=== PATIENT | male | born 1995 | race American Indian/Alaskan Native ===

== ENCOUNTER 2017-03-26 | Emergency (ER) | END 2017-03-26 08:41 | disposition home or self-care (01) ==

== ENCOUNTER 2017-07-06 20:57 | Emergency (ER) | payer OTHER ==
[~2017-07-06] VITALS: Ht 177.8 cm; Wt 81.7 kg
[~2017-07-06 20:57] MED LIST: DIPH50 PO; MUPI2TO TOP; OTC COLD MEDS; PRED20 PO
== END 2017-07-06 23:23 | disposition home or self-care (01) ==
LOC: ER 20:57
DX: S06.0X0A Concussion without loss of consciousness, initial encounter (principal); S01.312A Laceration without foreign body of left ear, initial encounter; S46.911A Strain of unspecified muscle, fascia and tendon at shoulder and upper arm level, right arm, initial encounter; S43.401A Unspecified sprain of right shoulder joint, initial encounter; M54.6 Pain in thoracic spine; V47.6XXA Car passenger injured in collision with fixed or stationary object in traffic accident, initial encounter; Z88.0 Allergy status to penicillin; Z79.52 Long term (current) use of systemic steroids; F17.210 Nicotine dependence, cigarettes, uncomplicated
CPT/HCPCS: 70450; 73030

== ENCOUNTER 2017-07-21 15:59 | Emergency (ER) | payer SELFPAY ==
[~2017-07-21] VITALS: Ht 177.8 cm; Wt 77.1 kg
[2017-07-21] MEDS ORDERED: IBUP800 PO (16:57)
[2017-07-21] MEDS ORDERED: Cleocin HCl300 MG PO (16:57)
== END 2017-07-21 17:04 | disposition home or self-care (01) ==
LOC: ER 15:59
DX: K04.7 Periapical abscess without sinus (principal); Z88.1 Allergy status to other antibiotic agents; F17.210 Nicotine dependence, cigarettes, uncomplicated
CPT/HCPCS: 64400; 99283

== ENCOUNTER 2020-02-26 20:47 | Emergency (ER) | payer OTHER ==
[~2020-02-26] VITALS: Ht 180.3 cm; Wt 95.2 kg
[~2020-02-26 20:47] MED LIST changes: +Cleocin HCl300 MG PO; +IBUP800 PO
[2020-02-26] MEDS ORDERED: Vibramycin100 MG PO (21:11)
== END 2020-02-26 21:40 | disposition home or self-care (01) ==
LOC: ER 20:47
DX: Z20.2 Contact with and (suspected) exposure to infections with a predominantly sexual mode of transmission (principal); Z88.0 Allergy status to penicillin; F17.210 Nicotine dependence, cigarettes, uncomplicated
CPT/HCPCS: 96372; 99282; J0696

== ENCOUNTER 2021-04-16 18:04 | Emergency (ER) | payer OTHER ==
[~2021-04-16] VITALS: Ht 175.3 cm; Wt 95.2 kg
[~2021-04-16 18:04] MED LIST changes: +Vibramycin100 MG PO
[2021-04-16] MEDS ORDERED: IBU800 MG PO (18:26)
[2021-04-16] MEDS ORDERED: Cleocin HCl300 MG PO (18:26)
== END 2021-04-16 18:35 | disposition home or self-care (01) ==
LOC: ER 18:04
DX: K02.9 Dental caries, unspecified (principal)
CPT/HCPCS: 99282; A9270